=== PATIENT | female | born 1980 | race Caucasian/White ===

== ENCOUNTER 2024-03-13 16:47 | Inpatient (IN) | payer MEDICAID ==
[~2024-03-13] VITALS: Ht 154.9 cm; Wt 68.5 kg
[2024-03-13] MEDS ORDERED: HALOPERIDOL LACTATE 5 MG/ML VIAL IM ONE (17:30)
[2024-03-13] MEDS: DiphenhydrAMINE HCL 50 MG/ML VIAL IM ONE (17:49)
[2024-03-13] MEDS: LORazepam 2 MG/ML VIAL IM ONE (17:49)
[2024-03-13] MEDS: HALOPERIDOL LACTATE 5 MG/ML VIAL IM ONE (17:50)
[2024-03-13 21:01] LABS: COVID AG,FIA SOURCE NASAL SWAB
[2024-03-13 21:26] LABS: SARS-COV2 (COVID) ANTIGEN,FIA Negative (Negative)
[2024-03-13 22:15] LABS: ANION GAP 8 mmol/L (8-16); CALCIUM, TOTAL 9.7 mg/dL (8.8-10.5); CARBON DIOXIDE 30 mmol/L (22-29); CHLORIDE 103 mmol/L (98-107); GLOMERULAR FILTR. RATE CALC > 60 mL/min (>60); GLUCOSE,RANDOM 103 mg/dL (70-110); POTASSIUM 3.8 mmol/L (3.5-5.1); SODIUM SERUM 141 mmol/L (136-145); UREA NITROGEN, BLOOD 6 mg/dL (7-18)
[2024-03-13 22:19] LABS: BASOPHILS % (AUTO) 0.7 % (0.0-2.0); EOSINOPHILS % (AUTO) 5.4 % (1.0-6.0); HEMATOCRIT 40.3 % (36-46); HEMOGLOBIN 13.6 g/dL (12.0-16.0); LYMPHOCYTES # (AUTO) 1.5 K/uL (1.0-4.8); LYMPHOCYTES % (AUTO) 16.2 % (22.0-44.0); MEAN CORPUSCULAR HEMOGLOBIN 31.1 pg (26.0-34.0); MEAN CORPUSCULAR HGB CONC 33.8 G/dL (31.0-37.0); MEAN CORPUSCULAR VOLUME 92 fL (80-100); MONOCYTES # (AUTO) 0.6 K/uL (0.1-1.0); MONOCYTES % (AUTO) 6.4 % (2.0-9.0); NEUTROPHILS # (AUTO) 6.8 K/uL (1.8-7.7); NEUTROPHILS % (AUTO) 71.3 % (40.0-70.0); PLATELET COUNT (AUTO) 263 K/uL (150-450); RED BLOOD CELL COUNT(AUTO) 4.38 MIL/uL (4.00-5.20); RED CELL DISTRIBUTION WIDTH 13.4 % (11.5-14.5); WHITE BLOOD COUNT (AUTO) 9.5 K/uL (4.5-11.0)
[2024-03-13 22:20] LABS: ALANINE AMINOTRANSFERASE 22 U/L (12-78); ALBUMIN 3.8 g/dL (3.4-5.0); ALKALINE PHOSPHATASE 105 U/L (46-116); ASPARTATE AMINOTRANSFERASE 25 U/L (15-37); BILIRUBIN,TOTAL 0.2 mg/dL (0.1-1.0); TOTAL PROTEIN, SERUM 7.9 g/dL (6.4-8.2)
[2024-03-13 22:24] LABS: ALCOHOL, BLOOD (SERUM) < 3 mg/dL (0-10)
[2024-03-14] MEDS: DiphenhydrAMINE HCL 50 MG/ML VIAL IM ONE (03:36)
[2024-03-14] MEDS: LORazepam 2 MG/ML VIAL IM ONE (03:37)
[2024-03-14] MEDS: HALOPERIDOL LACTATE 5 MG/ML VIAL IM ONE (03:45)
[2024-03-14 04:14] VITALS: RESP 18
[2024-03-14] MEDS ORDERED: HALOPERIDOL 5 MG TABLET PO PRN (04:15)
[2024-03-14 04:36] VITALS: RESP 18
[2024-03-14 04:42] VITALS: RESP 16
[2024-03-14 08:41] VITALS: RESP 18
[2024-03-14] MEDS ORDERED: MAG HYDROX/ALUMINUM HYD/SIMETH ES 30 ML SUSPENSION UDCUP PO PRN (10:00)
[2024-03-14] MEDS ORDERED: MAGNESIUM HYDROXIDE SUSPENSION 30 ML UDCUP PO PRN (10:00)
[2024-03-14] MEDS ORDERED: ONDANSETRON HCL 4 MG TABLET PO PRN (10:00)
[2024-03-14] MEDS ORDERED: DOCUSATE SODIUM 100 MG CAPSULE PO PRN (10:00)
[2024-03-14] MEDS ORDERED: CloNIDine HCL 0.1 MG TABLET PO PRN (10:00)
[2024-03-14] MEDS ORDERED: LOPERAMIDE HCL 2 MG CAPSULE PO PRN (10:00)
[2024-03-14] MEDS ORDERED: BACITRACIN 28 GM OINTMENT TP PRN (10:00)
[2024-03-14] MEDS ORDERED: BENZOCAINE/MENTHOL LOZENGE PO PRN (10:00)
[2024-03-14] MEDS ORDERED: PETROLATUM,WHITE 28 GM JELLY TP PRN (10:00)
[2024-03-14] MEDS ORDERED: OMEPRAZOLE 20 MG CAPSULE PO PRN (10:00)
[2024-03-14] MEDS: BusPIRone HCL 10 MG TABLET PO SCH (16:23)
[2024-03-14 19:06] VITALS: RESP 17
[2024-03-14] MEDS: QUEtiapine FUMARATE 200 MG TABLET PO SCH (20:30)
[2024-03-14 23:18] VITALS: RESP 18
[2024-03-15] MEDS: BuPROPion HCL 100 MG TABLET PO SCH (08:49)
[2024-03-15 20:06] VITALS: RESP 18
[2024-03-16 20:39] VITALS: RESP 16
[2024-03-17 14:56] VITALS: BP 114/74; PULSE 96; RESP 16; TEMP 98.4; O2SAT 97
[2024-03-17 22:21] VITALS: BP 133/76; PULSE 81; RESP 20; TEMP 96.3; O2SAT 97
[2024-03-18 08:26] VITALS: RESP 16
[2024-03-18 12:44] VITALS: RESP 16
[2024-03-18] MEDS: IBUPROFEN 600 MG TABLET PO PRN (12:44)
[2024-03-18 13:44] VITALS: RESP 16
[2024-03-18] MEDS: ACETAMINOPHEN 325 MG TABLET PO PRN (18:13)
[2024-03-18] MEDS: ZOLPIDEM TARTRATE 10 MG TABLET PO PRN (20:23)
[2024-03-18 23:40] VITALS: RESP 16
[2024-03-19 00:15] VITALS: BP 139/83; PULSE 70; RESP 17; TEMP 97.8; O2SAT 98
[2024-03-19 09:01] LABS: APPEARANCE,URINE HAZY (CLEAR); BILIRUBIN,URINE NEGATIVE (NEGATIVE); COLOR,URINE YELLOW (YELLOW); GLUCOSE, URINE (UA) NEGATIVE (NEGATIVE); KETONES,URINE NEGATIVE (NEGATIVE); LEUKOCYTE ESTERASE ,URINE TRACE (NEGATIVE); NITRATE,URINE NEGATIVE (NEGATIVE); OCCULT BLOOD,URINE NEGATIVE (NEGATIVE); PH,URINE 5.5 (5.0-8.0); PROTEIN,URINE TRACE mg/dL (NEGATIVE); UROBILINOGEN,URINE <=1.0 mg/dL (<=1.0)
[2024-03-19 09:10] LABS: ALCOHOL, URINE DRUG SCREEN NEGATIVE (NEGATIVE); AMPHET/METH SCREEN,URINE POSITIVE (NEGATIVE); BARBITURATE SCREEN, URINE NEGATIVE (NEGATIVE); BENZODIAZEPINES SCREEN,URINE NEGATIVE (NEGATIVE); CANNABINOID SCREEN,URINE POSITIVE (NEGATIVE); COCAINE SCREEN,URINE NEGATIVE (NEGATIVE); METHADONE SCREEN, URINE NEGATIVE (NEGATIVE); OPIATE SCREEN,URINE NEGATIVE (NEGATIVE); PHENCYCLIDINE SCREEN,URINE NEGATIVE (NEGATIVE)
[2024-03-19 09:13] LABS: PH,URINE DRUG SCREEN 5.5 (5.0-8.0)
[2024-03-19 09:17] LABS: BACTERIA,URINE Few /HPF (None Seen); RBC,URINE None Seen /HPF (0-2); SQUAMOUS EPITHELIAL CELL,UR Many /LPF (None Seen)
[2024-03-19 10:14] VITALS: BP 129/78; PULSE 76; RESP 17; TEMP 97.1; O2SAT 98
[2024-03-19 16:11] VITALS: BP 130/78; PULSE 83; RESP 19
[2024-03-19 17:11] VITALS: RESP 17
[2024-03-19] MEDS: DICLOFENAC SODIUM 1% 100 GM GEL [2GM] TP PRN (20:14)
[2024-03-19 21:48] VITALS: BP 132/77; PULSE 67; RESP 16; TEMP 97.3; O2SAT 99
[2024-03-20 08:43] LABS: APPEARANCE,URINE CLEAR (CLEAR); BILIRUBIN,URINE NEGATIVE (NEGATIVE); COLOR,URINE COLORLESS (YELLOW); GLUCOSE, URINE (UA) NEGATIVE (NEGATIVE); KETONES,URINE NEGATIVE (NEGATIVE); LEUKOCYTE ESTERASE ,URINE NEGATIVE (NEGATIVE); NITRATE,URINE NEGATIVE (NEGATIVE); OCCULT BLOOD,URINE NEGATIVE (NEGATIVE); PROTEIN,URINE NEGATIVE (NEGATIVE); SPECIFIC GRAVITIY, URINE 1.006 (1.003-1.030); UROBILINOGEN,URINE <=1.0 mg/dL (<=1.0)
[2024-03-20 08:53] VITALS: BP 126/87; PULSE 97; RESP 16; TEMP 98; O2SAT 99
[2024-03-20 11:31] VITALS: RESP 18
[2024-03-20 17:12] VITALS: BP 120/79; PULSE 73; RESP 16; TEMP 98.1; O2SAT 97
[2024-03-20 18:59] VITALS: BP 118/76; PULSE 72; RESP 16; TEMP 98; O2SAT 98
[2024-03-20 20:24] VITALS: BP 120/79; PULSE 73; RESP 16; TEMP 97.3; O2SAT 97
[2024-03-21] VITALS (7 sets, daily range): BP systolic 102–126; BP diastolic 67–78; PULSE 79–81; RESP 17–18; TEMP 97.6–97.9; O2SAT 18–98
[2024-03-21] MEDS ORDERED: DENTURE ADHESIVE 68 GM CREAM DT PRN (16:00)
[2024-03-21] MEDS ORDERED: QUEtiapine FUMARATE 200 MG TABLET PO SCH (21:00)
[2024-03-21] MEDS: QUEtiapine FUMARATE 300 MG TABLET PO SCH (22:00)
[2024-03-22 08:30] VITALS: BP 113/68; PULSE 78; RESP 16; TEMP 97.3; O2SAT 100
[2024-03-22] MEDS: LORazepam 2 MG TABLET PO PRN (14:30)
[2024-03-22] MEDS: QUEtiapine FUMARATE 300 MG TABLET PO SCH (20:51)
[2024-03-22 21:28] VITALS: BP 109/68; PULSE 69; RESP 18; TEMP 97.9; O2SAT 98
[2024-03-23 08:30] VITALS: BP 110/62; PULSE 70; RESP 18; TEMP 96.3; O2SAT 98
[2024-03-23] MEDS: ALBUTEROL SULFATE HFA 90 MCG/PUFF 8 GM INHALER IH PRN (13:30)
[2024-03-23 21:18] VITALS: BP 117/78; PULSE 61; RESP 18; TEMP 97; O2SAT 99
[2024-03-24] MEDS: BusPIRone HCL 10 MG TABLET PO SCH (13:25)
[2024-03-24 18:08] VITALS: RESP 20
[2024-03-24 18:45] VITALS: BP 107/60; PULSE 80; RESP 16; TEMP 97.7; O2SAT 99
[2024-03-24 19:03] VITALS: RESP 16
[2024-03-24 22:16] VITALS: BP 106/81; PULSE 81; RESP 16; TEMP 97; O2SAT 99
[2024-03-25 08:28] VITALS: BP 113/69; PULSE 80; RESP 16; TEMP 97.6; O2SAT 99
[2024-03-25] MEDS: NICOTINE 14 MG/24 HOUR PATCH TD ONE (15:23)
[2024-03-25] MEDS: HALOPERIDOL DECANOATE 100 MG/ML VIAL IM ONE (15:54)
[2024-03-25 21:02] VITALS: BP 105/61; PULSE 67; TEMP 97.3; O2SAT 98
[2024-03-26 08:13] VITALS: BP 118/73; PULSE 86; RESP 16; TEMP 97.8; O2SAT 99
[2024-03-26] MEDS: NICOTINE 14 MG/24 HOUR PATCH TD SCH (08:26)
[2024-03-26 20:54] VITALS: BP 106/76; PULSE 88; RESP 16; TEMP 98; O2SAT 98
[2024-03-27 08:26] VITALS: BP 119/80; PULSE 80; RESP 16; TEMP 98.2; O2SAT 98
[2024-03-27] MEDS ORDERED: BUPR-345 PO (09:45)
[2024-03-27] MEDS ORDERED: QUET300T2 PO (09:46)
[2024-03-30] MEDS ORDERED: HALOPERIDOL DECANOATE 50 MG/ML VIAL IM ONE (09:00)
[2024-04-29] MEDS ORDERED: HALOPERIDOL DECANOATE 100 MG/ML VIAL IM ONE (09:00)
== END 2024-03-27 11:15 | disposition home or self-care (01) | DRG 750 ==
LOC: EMS 16:50 → B3A 03-14 00:34
PROVIDERS: ADMIT Psychiatry & Neurology Psychiatry; ATTEND Psychiatry & Neurology Psychiatry
DX: F20.9 Schizophrenia, unspecified (principal); F41.9 Anxiety disorder, unspecified; Z20.822 Contact with and (suspected) exposure to COVID-19; G47.00 Insomnia, unspecified; K59.00 Constipation, unspecified; Z79.899 Other long term (current) drug therapy
CPT/HCPCS: 80053; 80307; 81001; 81003; 84703; 85025; 99285; G0480; J1200; J1630; J1631; J2060; J3535

== ENCOUNTER 2024-08-15 15:55 | Inpatient (IN) | payer MEDICAID ==
[~2024-08-15 15:55] MED LIST: BUPR-345 PO; QUET300T2 PO
[2024-08-15] MEDS ORDERED: ACETAMINOPHEN 325 MG TABLET PO PRN (17:30)
[2024-08-15] MEDS ORDERED: ZOLPIDEM TARTRATE 10 MG TABLET PO PRN (17:30)
[2024-08-15] MEDS ORDERED: LOPERAMIDE HCL 2 MG CAPSULE PO PRN (17:30)
[2024-08-15] MEDS ORDERED: MAG HYDROX/ALUMINUM HYD/SIMETH ES 30 ML SUSPENSION UDCUP PO PRN (17:30)
[2024-08-15] MEDS ORDERED: MAGNESIUM HYDROXIDE SUSPENSION 30 ML UDCUP PO PRN (17:30)
[2024-08-15] MEDS ORDERED: HALOPERIDOL LACTATE 5 MG/ML VIAL ONE (22:51)
[2024-08-15] MEDS ORDERED: DiphenhydrAMINE HCL 50 MG/ML VIAL ONE (22:52)
[2024-08-15] MEDS: DiphenhydrAMINE HCL 50 MG/ML VIAL IM ONE (23:09)
[2024-08-15] MEDS: HALOPERIDOL LACTATE 5 MG/ML VIAL IM ONE (23:09)
[2024-08-15] MEDS: LORazepam 2 MG/ML VIAL IM ONE (23:10)
[2024-08-16 00:07] VITALS: BP 111/60; PULSE 74; RESP 18; TEMP 97.8; O2SAT 96
[2024-08-16] MEDS ORDERED: PNEUMOCOCCAL VACCINE POLYVALENT 0.5 ML SYRINGE [PPSV23] IM. ONE (00:30)
[2024-08-16] MEDS: NICOTINE 14 MG/24 HOUR PATCH TD SCH (08:08)
[2024-08-16 10:45] VITALS: RESP 17
[2024-08-16 20:08] VITALS: RESP 17
[2024-08-16] MEDS: QUEtiapine FUMARATE 300 MG TABLET PO SCH (20:27)
[2024-08-17] MEDS: LORazepam 2 MG TABLET PO PRN (08:11)
[2024-08-17] MEDS: HALOPERIDOL 5 MG TABLET PO PRN (08:11)
[2024-08-17] MEDS: BuPROPion HCL 100 MG SR TABLET PO SCH (08:11)
[2024-08-17 08:20] VITALS: RESP 16
[2024-08-17 20:54] VITALS: RESP 17
== END 2024-08-18 13:51 | disposition left against medical advice (07) | DRG 750 ==
LOC: B3A 19:38
PROVIDERS: ADMIT Psychiatry & Neurology Psychiatry; ATTEND Psychiatry & Neurology Psychiatry
PROC: GZ56ZZZ Individual Psychotherapy, Supportive (ICD-10-PCS; principal; 2024-08-16)
DX: F20.0 Paranoid schizophrenia (principal); F17.200 Nicotine dependence, unspecified, uncomplicated; Z20.822 Contact with and (suspected) exposure to COVID-19; F41.9 Anxiety disorder, unspecified; Z53.29 Procedure and treatment not carried out because of patient's decision for other reasons
CPT/HCPCS: J1200; J1630; J2060